=== PATIENT | female | born 1990 | race Caucasian/White ===

== ENCOUNTER 2017-06-19 19:11 | Emergency (ER) | payer OTHER ==
[~2017-06-19] VITALS: Ht 165.1 cm; Wt 76.2 kg
[~2017-06-19 19:11] MED LIST: ABILIFY10 MG; ACETAMINOPHEN-1 EAC1 PO; AMOXICILLIN 50500 MG PO; AMOXICILLIN500 M1 PO; ANTIBIOTIC; ASPIRIN EC81 M1; ASPIRIN81 M2 PO; BACTRIM DS TAB1 EACH PO; BISACODYL SUPP10 MG RE; CEPHALEXIN 500500 M3 PO; CIPRO500 MG PO; COLACE 100 MG100 MG PO; DHA100 MG; ERYTHROMYCIN E3.5 G2 OP; FLAGYL500 MG PO; FLEXERIL PO; FLOXIN OTI0.3 %/5 M1 OT; HYDROCODONE-AP1 EAC6 PO; HYDROXINE PO; LEXAPRO 10 MG T10 MG PO; MACROBID 100 M100 M1 PO; NOHOMEMEDICATIONS; NORCO 5-325 TA1 EACH PO; ONDANSETRON HCL4 M2 PO; PAROXETINE HCL25 MG PO; PAXIL 20 MG TAB20 M1 PO; PENICILLIN VK500 MG PO; PHENADOZ25 MG RC; PRENATAL; PRENATAL PO; PROGESTERONE100 MG PO; VICODIN 5-5001 EACH PO; XANAX 0.25 MG0.25 MG PO; ZOFRAN ODT4 MG PO; ZOFRAN4 MG PO
[2017-06-19] MEDS ORDERED: PAXIL10 MG (19:36)
[2017-06-19 19:57] LABS: INFLUENZA A ANTIGEN None Detected (None Detect); INFLUENZA B ANTIGEN None Detected (None Detect)
[2017-06-19 20:22] VITALS: BP 125/82
== END 2017-06-19 20:22 | disposition home or self-care (01) ==
LOC: M.ERS 19:11
PROVIDERS: Nurse Practitioner Family
DX: J11.1 Influenza due to unidentified influenza virus with other respiratory manifestations (principal); B34.9 Viral infection, unspecified; Z98.890 Other specified postprocedural states

== ENCOUNTER 2018-01-31 18:20 | Emergency (ER) | payer OTHER ==
[~2018-01-31] VITALS: Ht 165.1 cm; Wt 81.7 kg
[~2018-01-31 18:20] MED LIST changes: +PAXIL10 MG
[2018-01-31] MEDS ORDERED: PAXIL10 MG PO (18:44)
[2018-01-31 20:57] VITALS: BP 130/68
== END 2018-01-31 20:30 | disposition home or self-care (01) ==
LOC: M.ERS 18:20
DX: R51 Headache (principal); Z98.890 Other specified postprocedural states

== ENCOUNTER 2018-03-27 17:45 | Emergency (ER) | payer OTHER ==
[~2018-03-27] VITALS: Ht 165.1 cm; Wt 83.9 kg
[~2018-03-27 17:45] MED LIST changes: +PAXIL10 MG PO
[2018-03-27] MEDS ORDERED: NABUMETONE 750750 M1 PO (18:45)
[2018-03-27 18:48] VITALS: BP 144/77
== END 2018-03-27 18:48 | disposition home or self-care (01) ==
LOC: M.ERS 17:45
DX: S80.01XA Contusion of right knee, initial encounter (principal); M25.562 Pain in left knee; G43.909 Migraine, unspecified, not intractable, without status migrainosus; F17.210 Nicotine dependence, cigarettes, uncomplicated; X58.XXXA Exposure to other specified factors, initial encounter; Y93.89 Activity, other specified; Y92.89 Other specified places as the place of occurrence of the external cause; Y99.8 Other external cause status

== ENCOUNTER 2018-05-16 19:37 | Emergency (ER) | payer OTHER ==
[~2018-05-16] VITALS: Ht 165.1 cm; Wt 81.2 kg
[~2018-05-16 19:37] MED LIST changes: +NABUMETONE 750750 M1 PO
[2018-05-16 20:40] LABS: URINE BILIRUBIN NEGATIVE (Negative); URINE BLOOD 3+ (Negative); URINE CLARITY CLEAR; URINE COLOR YELLOW; URINE GLUCOSE-RANDOM NEGATIVE (Negative); URINE KETONES NEGATIVE (Negative); URINE LEUKOCYTES-REFLEX TRACE (Negative); URINE NITRITE-REFLEX NEGATIVE (Negative); URINE PROTEIN NEGATIVE (Negative); URINE UROBILINOGEN 0.2 E.U./dl (0.2-1.0)
[2018-05-16 20:47] LABS: BACTERIA-REFLEX 1-9 Few /HPF (None Seen); CASTS None Seen /LPF (None Seen); CRYSTALS None Seen /LPF (None Seen); SQUAMOUS >10 Many /LPF (0-3); URINE RBC None Seen /HPF (0-2); URINE WBC-REFLEX 6-15 Few /HPF (0-5)
[2018-05-16 21:24] LABS: ABSOLUTE BASOPHILS 0.1 thou/uL (0.0-0.2); ABSOLUTE EOSINOPHILS 0.1 thou/uL (0.0-0.7); ABSOLUTE LYMPHOCYTES 3.3 thou/uL (0.8-5.3); ABSOLUTE MONOCYTES 0.5 thou/uL (0.0-1.2); ABSOLUTE NEUTROPHILS 4.7 thou/uL (1.6-8.1); BASOPHILS 1.2 %; EOSINOPHILS 1.1 %; HEMOGLOBIN 13.3 gm/dL (12.0-15.0); LYMPHOCYTES 37.9 %; MCH 30.1 pg (26.0-34.0); MCV 88.4 fL (80.0-100.0); MONOCYTES 6.1 %; MPV 8.4 fl. (7.2-11.1); NUCLEATED RBCS 0 /100WBC; PLATELET COUNT* 254 thou/uL (150-400); POLYS 53.7 %; RBC 4.41 mil/uL (4.20-5.00); RDW-CV 13.1 % (10.5-14.5); WBC 8.8 thou/uL (4.0-11.0)
[2018-05-16 21:33] LABS: CALCIUM 8.7 mg/dL (8.5-10.1); CREATININE 0.7 mg/dL (0.6-1.3); POTASSIUM 3.4 mmol/L (3.5-5.1)
[2018-05-16 22:09] VITALS: BP 125/79
== END 2018-05-16 22:09 | disposition home or self-care (01) ==
LOC: M.ERS 19:37
PROVIDERS: Nurse Practitioner Family; Personal Emergency Response Attendant
DX: Z32.02 Encounter for pregnancy test, result negative (principal); R10.9 Unspecified abdominal pain; G43.909 Migraine, unspecified, not intractable, without status migrainosus; F17.210 Nicotine dependence, cigarettes, uncomplicated; Z98.890 Other specified postprocedural states

== ENCOUNTER 2018-06-11 03:03 | Emergency (ER) | payer OTHER ==
[~2018-06-11] VITALS: Ht 165.1 cm; Wt 81.7 kg
[2018-06-11 03:46] LABS: URINE BILIRUBIN NEGATIVE (Negative); URINE BLOOD 2+ (Negative); URINE CLARITY CLEAR; URINE COLOR YELLOW; URINE GLUCOSE-RANDOM NEGATIVE (Negative); URINE KETONES NEGATIVE (Negative); URINE LEUKOCYTES-REFLEX NEGATIVE (Negative); URINE NITRITE-REFLEX NEGATIVE (Negative); URINE PROTEIN NEGATIVE (Negative); URINE SPECIFIC GRAVITY >= 1.030 (1.005-1.030); URINE UROBILINOGEN 0.2 E.U./dl (0.2-1.0)
[2018-06-11 03:50] LABS: CASTS None Seen /LPF (None Seen); MUCUS 0-3 Light strn/LPF (None Seen); SQUAMOUS >10 Many /LPF (0-3)
[2018-06-11 03:51] LABS: CREATININE 0.6 mg/dL (0.6-1.3); POTASSIUM 3.6 mmol/L (3.5-5.1)
[2018-06-11 03:51] LABS: AMP/METHAMP Negative (Negative); BARBITURATES Negative (Negative); BENZODIAZEPINES Negative (Negative); COCAINE Negative (Negative); CRYSTALS None Seen /LPF (None Seen); METHADONE Negative (Negative); OPIATES Negative (Negative); PCP Negative (Negative); THC Negative (Negative); URINE RBC 3-10 Few /HPF (0-2); URINE WBC-REFLEX 0-5 Rare /HPF (0-5)
[2018-06-11 03:55] LABS: ALBUMIN 3.7 g/dL (3.4-5.0); TOTAL BILIRUBIN 0.4 mg/dL (<0.1-1.0)
[2018-06-11 04:12] LABS: ABSOLUTE BASOPHILS 0.1 thou/uL (0.0-0.2); ABSOLUTE EOSINOPHILS 0.2 thou/uL (0.0-0.7); ABSOLUTE LYMPHOCYTES 3.2 thou/uL (0.8-5.3); ABSOLUTE MONOCYTES 0.7 thou/uL (0.0-1.2); ABSOLUTE NEUTROPHILS 6.4 thou/uL (1.6-8.1); BASOPHILS 0.9 %; EOSINOPHILS 1.5 %; HEMATOCRIT 42.1 % (37.0-47.0); HEMOGLOBIN 14.3 gm/dL (12.0-15.0); LYMPHOCYTES 30.4 %; MCV 88.5 fL (80.0-100.0); MONOCYTES 6.5 %; NUCLEATED RBCS 0 /100WBC; PLATELET COUNT* 275 thou/uL (150-400); POLYS 60.7 %; RBC 4.76 mil/uL (4.20-5.00); RDW-CV 13.1 % (10.5-14.5); WBC 10.6 thou/uL (4.0-11.0)
[2018-06-11] MEDS ORDERED: NORCO 5-325 TA1 EACH PO (06:40)
[2018-06-11] MEDS ORDERED: ZOFRAN ODT4 MG PO (06:40)
[2018-06-11 06:49] VITALS: BP 95/55
== END 2018-06-11 06:49 | disposition home or self-care (01) ==
LOC: M.ERS 03:03
PROVIDERS: Personal Emergency Response Attendant
DX: R10.13 Epigastric pain (principal); R11.2 Nausea with vomiting, unspecified; G43.909 Migraine, unspecified, not intractable, without status migrainosus